=== PATIENT | female | born 1970 | race African-American/Black ===

== ENCOUNTER 2018-11-08 17:34 | Observation (INO) ==
[2018-11-08 18:50] LABS: Baso % (Auto) 0.5 % (0.0-2.0); Eos # (Auto) 0.1 th/mm3 (0.0-0.4); Eos % (Auto) 2.1 % (0.0-4.0); Hematocrit 37.6 % (35.0-46.0); Hemoglobin 12.7 gm/dL (11.6-15.3); Lymph # (Auto) 2.1 th/mm3 (1.0-4.8); Lymph % (Auto) 30.8 % (9.0-44.0); Mean Corpuscular HGB Conc 33.7 % (32.0-36.0); Mean Corpuscular Hemoglobin 25.7 pg (27.0-34.0); Mean Corpuscular Volume 76.3 fL (80.0-100.0); Mean Platelet Volume 8.1 fL (7.0-11.0); Mono # (Auto) 0.6 th/mm3 (0.0-0.9); Mono % (Auto) 8.3 % (0.0-8.0); Neut # (Auto) 3.9 th/mm3 (1.8-7.7); Neut % (Auto) 58.3 % (16.0-70.0); Platelet Count 360 th/mm3 (150-450); Red Blood Count 4.92 mil/mm3 (4.00-5.30); Red Cell Distribution Width 15.1 % (11.6-17.2); White Blood Count 6.7 th/mm3 (4.0-11.0)
[2018-11-08] MEDS ORDERED: Morphine Inj 4 MG/ML Vial IV.PUSH ONE (18:51)
[2018-11-08 18:54] LABS: Bacteria,Urine Rare /hpf; Bilirubin,Urine Negative (Negative); Clarity,Urine Clear (Clear); Color,Urine Straw (Yellw/Straw); Glucose,Urine (UA) 50 mg/dL (Negative); Leukocyte Esterase,Urine Negative (Negative); Nitrite,Urine Negative (Negative); Specific Gravity,Urine 1.009 (1.002-1.035); Squamous Epithelial Cell,Urine 1 /hpf (0-5)
--- NOTE | 2018-11-08 19:02 | XR ---
EXAM DATE: 11/08/2018 6:59 PM EST AGE/SEX: 48 years / Female INDICATIONS: Chest pain CLINICAL DATA: This is the patient's initial encounter. Patient reports that signs and symptoms have been present for 1 day and indicates a pain score of 6/10. MEDICAL/SURGICAL HISTORY: None. None. COMPARISON: No prior exams available for comparison. FINDINGS: Single AP view the chest. The lungs are clear. Cardiomediastinal silhouette within normal limits. No evidence of pleural effusion or pneumothorax. CONCLUSION: No acute cardiopulmonary disease identified. Electronically signed by: Sudeep Marsh MD Board Certified Radiologist 11/08/2018 7:00 PM EST
--- NOTE | 2018-11-08 19:03 | ED ---
HPI General Chief Complaint: Abdominal Pain Stated Complaint: Left Side/back pain Time Seen by Provider: 11/08/18 17:56 Source: patient and family Mode of arrival: ambulatory Limitations: no limitations History of Present Illness HPI narrative: 48-year-old female who presents to the ED for evaluation of left flank pain that radiates to the chest. Per patient she has had this for about 1 -2 hours. Per patient she got concerned because the pain did not seem to really get reproducible with touch or with movement. Breathing does not make it worse. Per patient is constant and does not go away. Per patient she was concerning could be her heart or kidney. She denies any rashes. No fevers chills or sweats. No cough or runny nose. No history of heart disease. History of diabetes and high blood pressure. Takes medications for this. Denies taking anything for the pain. Per patient the pain is 6 out of 10. Does radiate to the chest and the upper abdomen. No surgeries to her chest or belly ever per patient. No urinary or bowel movement issues. No trauma. No heavy lifting. Related Data Home Medications Medication Instructions Recorded Confirmed cholecalciferol (vitamin D3) 5,000 unit PO WEEKLY 11/08/18 11/08/18 [Vitamin D3] hydrochlorothiazide 25 mg PO DAILY 11/08/18 11/08/18 metoprolol tartrate 50 mg PO BID 11/08/18 11/08/18 nifedipine 60 mg PO DAILY 11/08/18 11/08/18 omeprazole 20 mg PO DAILY 11/08/18 11/08/18 potassium chloride [K-Tab] 8 meq PO DAILY 11/08/18 11/08/18 sertraline 50 mg PO DAILY 11/08/18 11/08/18 simvastatin 40 mg PO QPM 11/08/18 11/08/18 Allergies Allergy/AdvReac Type Severity Reaction Status Date / Time grass pollen Allergy Mild Unverified 06/17/17 13:43 latex Allergy Unknown HIVES Unverified 06/17/17 13:43 Review of Systems ROS: all other systems reviewed are negative [facility] Medical History Medical History Diabetes (Acute) High cholesterol (Acute) Hypertension (Acute) Social History Social History Second Hand Smoke Exposure: No Smoking Status: Never smoker How Often Do You Have a Drink Containing Alcohol: Never Recent Travel in [facility] within the Last 8 Weeks: No Recent Out of Country Travel within the Last 8 Weeks: No Immunization History Tetanus Immunization: <5 Years Exam Narrative Exam Narrative: GENERAL: Well-appearing SKIN: Focused skin assessment warm/dry. HEAD: Atraumatic. Normocephalic. EYES: Pupils equal and round. No scleral icterus. No injection or drainage. ENT: No nasal bleeding or discharge. Mucous membranes pink and moist. Tongue is midline. No Uvula deviation. NECK: Trachea midline. No JVD. CARDIOVASCULAR: Regular rate and rhythm. No murmur appreciated. RESPIRATORY: No accessory muscle use. Clear to auscultation. Breath sounds equal bilaterally. GASTROINTESTINAL: Abdomen soft, non-tender, nondistended. Hepatic and splenic margins not palpable. MUSCULOSKELETAL: No obvious deformities. No clubbing. No cyanosis. No edema. Full range of motion of the upper and lower extremities bilaterally. 2+ pulses bilaterally. No producible pain. NEUROLOGICAL: Awake and alert. No obvious cranial nerve deficits. Motor grossly within normal limits. Normal speech. PSYCHIATRIC: Appropriate mood and affect; insight and judgment normal. Course Initial Documented Vital Signs Temperature 98.6 F 11/08/18 17:52 Pulse Rate 74 11/08/18 17:52 Respiratory Rate 19 11/08/18 17:52 Blood Pressure 135/74 11/08/18 17:52 Pulse Oximetry 99 11/08/18 17:52 Last Documented Vital Signs Temperature 98.6 F 11/08/18 17:52 Pulse Rate 65 11/08/18 18:48 Respiratory Rate 18 11/08/18 18:48 Blood Pressure 144/75 H 11/08/18 18:48 Pulse Oximetry 99 11/08/18 18:48 Medical Decision Making ESTELA Attestation ESTELA supervised visit: Yes Attestation: I, Dr. Kunz, have reviewed the advance practice practitioner's documentation and am in agreement, met with the patient face to face, made the diagnosis, and the medical decision making was done by me. The patient was initially evaluated by Farida Irvin. Please see their complete history and physical. *My assessment and Findings: The patient presents with a history of left upper back pain that she reports suddenly began about an hour ago. She denies having any pain in the front of her chest. She denies having any shortness of breath. She reports that since being in the emergency department she has also developed a burning sensation in the midepigastric area and left upper quadrant that also radiated into her throat. Patient denies any prior history of cardiac disease, however she does have a history of hypertension, hyperlipidemia , and diabetes mellitus. She reports that she last had a stress test done years ago. During the course of the patient's emergency department visit, the patient's history, examination, and differential diagnosis were reviewed with the patient. The patient was placed on a solar manager with oximetry and frequent blood pressure monitoring. The patient had IV access obtained and blood work sent for analysis. The patient was initially provided morphine for pain, famotidine 20 mg IV, Zofran 4 mg IV. The patient continued to have pain and an EKG was assessed. The patient's EKG showed T wave abnormalities. The patient was given aspirin 324 mg p.o. x1, nitroglycerin sublingual x1. The patient's diagnostic studies were reviewed and remarkable for a white count of 6.7, hemoglobin 12.7, platelets 360 with 8.3 monocytes. Chemistry is remarkable for potassium 3.4, glucose 221, troponin I is less than 0.02, lipase within normal limits, urinalysis is unremarkable. CHEST X-RAY: Showed no acute cardiopulmonary disease, CT scan of the abdomen and pelvis showed no acute abnormality. The patient was agreeable with the plan to proceed with admission to the chest pain center for atypical upper chest pain, burning into the throat and upper abdomen. The patient's results were discussed with the patient, including the plan of care. I explained that further testing and/ or monitoring is indicated based on the patient's history, examination, and/ or laboratory findings. Therefore, I recommended admission for additional evaluation. The patient expressed understanding and was agreeable with this plan. The patient was admitted to the hospital in stable condition and sent to a bed under the care of the [facility]. MDM Narrative Medical decision making narrative: 48-year-old female who presents to the ED for evaluation of left flank pain. Patient was properly examined and was found to have signs and symptoms of unclear etiology. Labs and imaging were ordered. Patient was given IV pain medications. Labs and imaging showed no sign of acute disease. Patient does have a inguinal hernia fat-containing but there is no pain in this area. Is unclear as to what is causing the pain. I suspect that he could be potentially shingles but patient has no rash at this time. Case was discussed extensively with my attending Dr. Kunz who was made aware of all findings. Patient apparently had a reaction to the morphine where she started having a burning sensation to her abdomen. Patient was given Pepcid for this. It is unclear as to the patient's symptoms. I had my attending Dr. Kunz evaluate the patient who recommends admission for further evaluation and treatment as he could be a typical chest pain. She does have risk factors. Patient agree with admission to the chest pain center for chest pain center rule out. Patient was admitted by my attending. Medical Screen Exam Complete: Yes Emergency Medical Condition: Yes Differential Diagnosis Differential Diagnosis: Back pain versus kidney stone versus kidney pain versus musculoskeletal pain versus shingles versus ACS versus atypical chest pain Medical Records Medical records reviewed: Yes I reviewed the patient's medical records. Lab Data Lab results reviewed: Yes I reviewed the patient's lab results. Result diagrams: 11/08/18 18:15 11/08/18 18:15 Lab Results 11/08/18 11/08/18 11/08/18 Range/Units 18:10 18:15 18:15 WBC 6.7 (4.0-11.0) th/mm3 RBC 4.92 (4.00-5.30) mil/mm3 Hgb 12.7 (11.6-15.3) gm/dL Hct 37.6 (35.0-46.0) % MCV 76.3 L (80.0-100.0) fL MCH 25.7 L (27.0-34.0) pg MCHC 33.7 (32.0-36.0) % RDW 15.1 (11.6-17.2) % Plt Count 360 (150-450) th/mm3 MPV 8.1 (7.0-11.0) fL Neut % (Auto) 58.3 (16.0-70.0) % Lymph % (Auto) 30.8 (9.0-44.0) % [place] % (Auto) 8.3 H (0.0-8.0) % Eos % (Auto) 2.1 (0.0-4.0) % Baso % (Auto) 0.5 (0.0-2.0) % Neut # (Auto) 3.9 (1.8-7.7) th/mm3 Lymph # (Auto) 2.1 (1.0-4.8) th/mm3 [place] # (Auto) 0.6 (0.0-0.9) th/mm3 Eos # (Auto) 0.1 (0.0-0.4) th/mm3 Baso # (Auto) 0.0 (0.0-0.2) th/mm3 WBC Differential . Differential Comment Auto diff final Sodium 137 (136-145) meq/L Potassium 3.4 L (3.5-5.1) meq/L Chloride 103 (98-107) meq/L Carbon Dioxide 27.8 (21.0-32.0) meq/L Anion Gap 6 (5-15) meq/L BUN 10 (7-18) mg/dL Creatinine 0.75 (0.50-1.00) mg/dL Estimated GFR Greater than 89 (>89) mL/min Random Glucose 221 H (74-106) mg/dL Calcium 8.9 (8.5-10.1) mg/dL Magnesium 2.2 (1.5-2.5) mg/dL Total Bilirubin 0.6 (0.2-1.0) mg/dL AST 16 (15-37) U/L ALT 17 (10-53) U/L Alkaline Phosphatase 54 (45-117) U/L Troponin I Less than 0.02 L (0.02-0.05) ng/mL Total Protein 8.7 H (6.4-8.2) g/dL Albumin 3.5 (3.4-5.0) g/dL Lipase 79 (73-393) U/L Urine Color Straw (Yellw/Straw) Urine Clarity Clear (Clear) Urine pH 7.0 (5.0-8.5) Ur Specific [place] 1.009 (1.002-1.035) Urine Protein Negative (Neg-Trace) mg/dL Urine Glucose (UA) 50 (Negative) mg/dL Urine Ketones Negative (Negative) mg/dL Urine Occult Blood Negative (Negative) Urine Nitrate Negative (Negative) Urine Bilirubin Negative (Negative) Urine Urobilinogen Less than 2 (Less than 2) mg/dL Ur Leukocyte Esterase Negative (Negative) Urine WBC 1 (0-5) /hpf Ur Squamous Epith Cells 1 (0-5) /hpf Urine Bacteria Rare H (None) /hpf Micro UA Comment Culture not ind Ur Microscopic Review Not Reportable Urine Culture Comments Culture not ind Imaging Data Attestation: I personally reviewed and interpreted this imaging study as follows : Radiologist's impression: Abdomen/Pelvis CT 11/08/18 18:14 CONCLUSION: 1. No acute findings in the abdomen and pelvis. 2. Status post cholecystectomy. 3. Fat-containing periumbilical: Left-sided inguinal hernias. No associated inflammatory change or bowel involvement. 4. Prominent degenerative findings of the lumbar spine and right greater than left old sacroiliitis/sacroiliac joint arthrosis Chest X-Ray 11/08/18 18:14 CONCLUSION: No acute cardiopulmonary disease identified. ECG Data Attestation: I personally reviewed and interpreted this ECG as follows: Interpretation: EKG shows sinus rhythm with no sign of acute ischemia and arrhythmia read by me and attending. Some T wave inversions noted but no sign of ST elevations. Discharge Plan Discharge Disposition Patient Disposition: ED Admit(ED Internal Use Only) Discharge Order Discharge Orders: ED Use Only Admit Order (Routine); Ordered 11/08/18 Ordered By: Brianda Kunz Discharge Details Diagnosis: Chest pain, rule out acute myocardial infarction Physicians Team ED Provider: Brianda Kunz ED Midlevel Provider: Albaro Escalera Primary Care Provider: Jhon White Attending Provider: Corey Lemons Discharge Interventions Interventions: Vital Signs Last Done: 11/08/18 18:48 Status ED Status: Admitted Observation Patient
[2018-11-08 19:05] LABS: Albumin 3.5 g/dL (3.4-5.0); Anion Gap 6 meq/L (5-15); Aspartate Aminotransferase 16 U/L (15-37); Blood Urea Nitrogen 10 mg/dL (7-18); Calcium 8.9 mg/dL (8.5-10.1); Carbon Dioxide 27.8 meq/L (21.0-32.0); Chloride 103 meq/L (98-107); Glomerular Filtration Rate Greater Than 89 mL/min (>89); Glucose,Random 221 mg/dL (74-106); Lipase 79 U/L (73-393); Magnesium 2.2 mg/dL (1.5-2.5); Potassium 3.4 meq/L (3.5-5.1); Sodium 137 meq/L (136-145)
[2018-11-08 19:06] LABS: Alanine Aminotransferase 17 U/L (10-53)
[2018-11-08 19:10] LABS: Alkaline Phosphatase 54 U/L (45-117); Total Protein 8.7 g/dL (6.4-8.2)
--- NOTE | 2018-11-08 19:22 | CT ---
EXAM DATE: 11/08/2018 7:13 PM EST AGE/SEX: 48 years / Female INDICATIONS: Abdominal pain. CLINICAL DATA: This is the patient's initial encounter. Patient reports that signs and symptoms have been present for 1 day and indicates a pain score of 6/10. MEDICAL/SURGICAL HISTORY: Diabetes. Hypertension. Hypercholesterolemia. None. RADIATION DOSE: 30.78 CTDI (mGy) [place] [facility] [place] 01/04/2013. . TECHNIQUE: Multiple contiguous axial images were obtained through the abdomen. Images were obtained using multiple row detector helical technique. Using automated exposure control and adjustment of the mA and/or kV according to patient size, radiation dose was kept as low as reasonably achievable to o btain optimal diagnostic quality images. DICOM format image data is available electronically for rev iew and comparison. FINDINGS: Lower Lungs: The visualized lower lungs are clear. Liver: Liver is within normal limits. Cholecystectomy clips noted. Spleen: Homogeneous density without enlargement. Pancreas: Unremarkable without mass or calcification. Kidneys: Normal in size and shape. No evidence of mass or hydronephrosis. Adrenal Glands: Unremarkable. Aorta: The aorta and proximal iliac vessels are grossly unremarkable without aneurysmal dilation. Bowel/Mesentery: No evidence of bowel dilatation. No free air or free fluid. Appendix within normal limits. Abdominal Wall: 2 cm fat-containing periumbilical hernia. Retroperitoneum: No evidence of adenopathy in the retrocrural, para-aortic, or deep pelvic regions. Bladder: Contours are smooth. Reproductive Organs: Unremarkable. Inguinal: 2.8 cm left-sided fat-containing inguinal hernia. No enlarged lymph nodes. Bony Structures: Degenerative findings of the thoracic spine and lumbar spine. Prominent lower lumba r spine facet arthrosis. Old right greater than left sacroiliac joint arthrosis/sacroiliitis. CONCLUSION: 1. No acute findings in the abdomen and pelvis. 2. Status post cholecystectomy. 3. Fat-containing periumbilical: Left-sided inguinal hernias. No associated inflammatory change or b owel involvement. 4. 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
[2018-11-08] MEDS ORDERED: Famotidine PF Inj 20 MG/2 ML Vial IV.PUSH ONE (21:40)
[2018-11-08] MEDS ORDERED: Acetaminophen 500 MG Tablet PO PRN (22:09)
[2018-11-08 23:13] LABS: Creatine Kinase 65 U/L (26-192)
[2018-11-09 02:00] LABS: Creatine Kinase 85 U/L (26-192)
--- NOTE | 2018-11-09 07:42 | P.HPCA ---
History of Present Illness Primary Care Physician: Jhon White MD Chief Complaint: Back pain History of Present Illness: 48-year-old female with history of hypertension, hyperlipidemia, diabetes, and GERD presents emergency room for further evaluation left posterior scapula pain. Onset yesterday evening. Characterized as sharp. Radiation to left anterior chest. Associated symptoms included diaphoresis. Denies nausea, vomiting, or shortness of breath. Duration hours. Denies similar pain in the past. No precipitating or relieving factors. Inspiration did not make pain better or worse. No particular position makes pain better or worse. No recent illness, cough, or known injury. Lifelong non-smoker. Past cardiac testing 07/02/2010 Lexiscan-the rest and stress images are unremarkable. There were no fixed or reversible perfusion abnormalities. Wall motion preserved. The calculated ejection fraction 62%. Social history Known type 2 diabetes, hypertension, and hyperlipidemia. No known coronary artery disease. Lifelong non-smoker. Denies alcohol or recreational drug use. Endorses sedentary lifestyle. Family history Noncontributory for early onset cardiovascular disease. - Diagnosis (1) Atypical chest pain (2) Hypertension (3) Type II diabetes mellitus (4) Hyperlipidemia Review of Systems All other systems reviewed negative except as stated in HPI PMFSH - History History Provided By: Patient - Medical History Medical History: Medical History (Last Updated 11/09/18 @ 09:07 by STEFAN Portillo) Depression Diabetes GERD (gastroesophageal reflux disease) High cholesterol Hypertension Vitamin D deficiency - Surgical History Surgical History: Surgical History (Last Updated 11/09/18 @ 09:16 by STEFAN Portillo) H/O tubal ligation History of endometrial ablation S/P cholecystectomy - Tobacco History Second Hand Smoke Exposure: No Smoking Status: Never smoker - Alcohol History How Often Do You Have a Drink Containing Alcohol: Never - Substance Use History Substance History: No History of Abuse - Travel History Recent Travel in the [place] Within the Last 8 Weeks: No Recent Travel Out of the Country Within the Last 8 Weeks: No - Immunization History Tetanus Immunization: <5 Years Medications and Allergies Active Medications: Active Medications Acetaminophen (Tylenol) 500 mg PO Q4H PRN PRN Reason: HEADACHE Famotidine (Pepcid) 20 mg PO BID MAYE Sodium Chloride (Ns Flush) 2 ml IV.FLUSH BID MAYE Sodium Chloride (Ns Flush) 2 ml IV.FLUSH PRN PRN PRN Reason: FLUSH AFTER USING IV ACCESS Allergies Allergy/AdvReac Type Severity Reaction Status Date / Time grass pollen Allergy Mild Unverified 06/17/17 13:43 latex Allergy Unknown HIVES Unverified 06/17/17 13:43 Home Medications Medication Instructions Recorded Confirmed Type cholecalciferol (vitamin D3) 5,000 unit PO WEEKLY 11/08/18 11/08/18 History [Vitamin D3] hydrochlorothiazide 25 mg PO DAILY 11/08/18 11/08/18 History metoprolol tartrate 50 mg PO BID 11/08/18 11/08/18 History nifedipine 60 mg PO DAILY 11/08/18 11/08/18 History omeprazole 20 mg PO DAILY 11/08/18 11/08/18 History potassium chloride [K-Tab] 8 meq PO DAILY 11/08/18 11/08/18 History sertraline 50 mg PO DAILY 11/08/18 11/08/18 History simvastatin 40 mg PO QPM 11/08/18 11/08/18 History Exam Vital signs: Vital Signs 11/08/18 17:52 11/08/18 18:06 11/08/18 18:48 Temperature 98.6 F Pulse Rate 74 65 Respiratory Rate 19 18 18 Blood Pressure 135/74 144/75 H Pulse Oximetry 99 99 11/08/18 23:06 11/09/18 00:00 11/09/18 04:00 Temperature 98.7 F 98.1 F Pulse Rate 60 63 64 Respiratory Rate 16 16 16 Blood Pressure 147/79 H 142/78 H 128/72 Pulse Oximetry 98 93 L 98 Intake & Output 11/08/18 11/09/18 11/09/18 18:59 06:59 18:59 Weight 113.852 kg 113.85 kg Other: # Voids 1 Weight On Admission 113.85 kg Narrative: GENERAL: Alert WN, WD, NAD, pleasant, obese, -[place] female HEAD: NC, AT EYES: Sclera clear, conjunctiva without injection, pupils equal and round ENT: Mucous membranes pink and moist NECK: Supple, no masses, trachea midline CV: RRR, without murmur, rub, gallop, no JVD, S1-S2. RESP: Clear lungs throughout bilateral, no crackles, wheeze, rhonchi, symmetrical chest rise, nonlabored, able to speak in full sentences ABD: Soft, NT, ND, no masses, positive bowel tones EXT: Pulses +2x4, trace dependent edema MS: Normal tone x4 extremities, nontender, no obvious deformities, full range of motion NEURO: Motor strength 5/5 PSYCH: A+O x3, pleasant affect, appropriate speech, mood, insight and judgment SKIN: Normal turgor, normal texture, no lesions, no rashes, even hair distribution Results 11/08/18 18:15 11/08/18 18:15 Cardiac Enzymes 11/08/18 11/08/18 11/09/18 Range/Units 18:15 22:30 01:28 AST 16 (15-37) U/L Troponin I Less than 0.02 L Less than 0.02 L Less than 0.02 L (0.02-0.05) ng/mL CBC 11/08/18 Range/Units 18:15 WBC 6.7 (4.0-11.0) th/mm3 RBC 4.92 (4.00-5.30) mil/mm3 Hgb 12.7 (11.6-15.3) gm/dL Hct 37.6 (35.0-46.0) % Plt Count 360 (150-450) th/mm3 Neut # (Auto) 3.9 (1.8-7.7) th/mm3 Lymph # (Auto) 2.1 (1.0-4.8) th/mm3 [place] # (Auto) 0.6 (0.0-0.9) th/mm3 Eos # (Auto) 0.1 (0.0-0.4) th/mm3 Baso # (Auto) 0.0 (0.0-0.2) th/mm3 Comprehensive Metabolic Panel 11/08/18 Range/Units 18:15 Sodium 137 (136-145) meq/L Potassium 3.4 L (3.5-5.1) meq/L Chloride 103 (98-107) meq/L Carbon Dioxide 27.8 (21.0-32.0) meq/L BUN 10 (7-18) mg/dL Creatinine 0.75 (0.50-1.00) mg/dL Calcium 8.9 (8.5-10.1) mg/dL AST 16 (15-37) U/L ALT 17 (10-53) U/L Alkaline Phosphatase 54 (45-117) U/L Total Protein 8.7 H (6.4-8.2) g/dL Albumin 3.5 (3.4-5.0) g/dL Intake and Output 11/08/18 11/09/18 11/09/18 22:59 06:59 14:59 Other: # Voids 1 Weight 113.852 kg 113.85 kg Weight On Admission 113.85 kg - Imaging and Cardiology Imaging: Impressions Abdomen/Pelvis CT 11/08/18 18:14 CONCLUSION: 1. No acute findings in the abdomen and pelvis. 2. Status post cholecystectomy. 3. Fat-containing periumbilical: Left-sided inguinal hernias. No associated inflammatory change or bowel involvement. 4. Prominent degenerative findings of the lumbar spine and right greater than left old sacroiliitis/sacroiliac joint arthrosis Chest X-Ray 11/08/18 18:14 CONCLUSION: No acute cardiopulmonary disease identified. EKG interpretations - EKG EKG results cardiology: sinus rhythm, normal axis Caprini VTE Risk Assessment Caprini VTE Risk Assessment: No/Low Risk (score <= 1) Caprini Risk Assessment Model: Point Value = 1 Point Value = 2 Point Value = 3 Point Value = 5 Age 41-60 Minor surgery BMI > 25 kg/m2 Swollen legs Varicose veins or History of unexplained or recurrent spontaneous Oral contraceptives or hormone replacement Sepsis (< 1 month) Serious lung disease, including pneumonia (< 1 month) Abnormal pulmonary function Acute myocardial infarction Congestive heart failure (< 1 month) History of inflammatory bowel disease Medical patient at bed rest Age 61-74 Arthroscopic surgery Major open surgery (> 45 min) Laparoscopic surgery (> 45 min) Malignancy Confined to bed (> 72 hours) Immobilizing plaster cast Central venous access Age >= 75 History of VTE Family history of VTE Factor V Leiden Prothrombin [id number] Lupus anticoagulant Anticardiolipin antibodies Elevated serum homocysteine Heparin-induced thrombocytopenia Other congenital or acquired thrombophilia Stroke (< 1 month) Elective arthroplasty Hip, pelvis, or leg fracture Acute spinal cord injury (< 1 month) Prophylaxis Regimen: Total Risk Factor Score Risk Level Prophylaxis Regimen 0-1 Low Early ambulation 2 Moderate Order ONE of the following: *Sequential Compression Device (SCD) *Heparin 5000 units SQ BID 3-4 Higher Order ONE of the following medications: *Heparin 5000 units SQ TID *Enoxaparin/Lovenox 40 mg SQ daily (WT < 150 kg, CrCl > 30 mL/min) *Enoxaparin/Lovenox 30 mg SQ daily (WT < 150 kg, CrCl > 10-29 mL/min) *Enoxaparin/Lovenox 30 mg SQ BID (WT < 150 kg, CrCl > 30 mL/min) AND/OR *Sequential Compression Device (SCD) 5 or more Highest Order ONE of the following medications: *Heparin 5000 units SQ TID (Preferred with Epidurals) *Enoxaparin/Lovenox 40 mg SQ daily (WT < 150 kg, CrCl > 30 mL/min) *Enoxaparin/Lovenox 30 mg SQ daily (WT < 150 kg, CrCl > 10-29 mL/min) *Enoxaparin/Lovenox 30 mg SQ BID (WT < 150 kg, CrCl > 30 mL/min) AND *Sequential Compression Device (SCD) Assessment and Plan - Assessment (1) Atypical chest pain Code(s): R07.89 - Other chest pain Status: Acute Plan: Admitted to chest pain center. Monitor on telemetry overnight. ACS ruled out 3 sets of EKGs and cardiac enzymes. Seen and evaluated by Dr. Jae Orr. Proceed with Lexiscan this a.m. If unremarkable, plans to discharge home with follow-up with her primary care provider. She is agreeable to plan of care and verbalizes understanding. Lexiscan (2) Hypertension Code(s): I10 - Essential (primary) hypertension Status: Chronic Plan: Continue hydrochlorothiazide, metoprolol, and nifedipine. (3) Type II diabetes mellitus Code(s): E11.9 - Type 2 diabetes mellitus without complications Status: Chronic Plan: Hypoglycemic protocol. Continue Metformin. (4) Hyperlipidemia Code(s): E78.5 - Hyperlipidemia, unspecified Status: Chronic Plan: Continue simvastatin. H&P: Quality - VTE Deep Vein Thrombosis/Pulmonary Embolism Present on Admission: No (2) Hypertension Qualifiers: Hypertension type: unspecified Qualified Code(s): I10 - Essential (primary) hypertension (3) Type II diabetes mellitus Qualifiers: Diabetes mellitus director long term care insulin use: without director long term care use Diabetes mellitus complication status: with unspecified complications Qualified Code(s) : E11.8 - Type 2 diabetes mellitus with unspecified complications (4) Hyperlipidemia Qualifiers: Hyperlipidemia type: unspecified Qualified Code(s): E78.5 - Hyperlipidemia, unspecified
[2018-11-09] MEDS ORDERED: Famotidine 20 MG Tablet PO SCH (09:00)
[2018-11-09] MEDS ORDERED: Regadenoson Inj 0.4 MG/5 ML Syringe IV.PUSH ONE (09:12)
--- NOTE | 2018-11-09 10:19 | NM ---
EXAM DATE: 11/09/2018 10:14 AM EST AGE/SEX: 48 years / Female INDICATIONS:Angina. . Left sided chest pain. CLINICAL DATA: This is the patient's initial encounter. Patient reports that signs and symptoms have been present for 1 day and indicates a pain score of 5/10. MEDICAL/SURGICAL HISTORY: Diabetes mellitus type II. Hypertension. None. COMPARISON: No prior exams available for comparison. DOSE: 11 mCi Tc 99m Myoview at rest 35 mCi [id number] at stress 0.4 mg Lexiscan STRESS SYMPTOMS: Dyspnea and weird feeling. EJECTION FRACTION: >70 % TECHNIQUE: The patient underwent pharmacologic stress with infusion of prescribed dose. Continuous ECG tracing was monitored during stress. Gated SPECT imaging was performed after stress and conventi onal SPECT imaging was performed at rest. The examination was performed on a SPECT/CT scanner, both attenuation and non-corrected datasets were reviewed. FINDINGS: Distribution: The maximum perfused segment at stress is in the inferior wall. Perfusion Study: The pattern of perfusion at stress shows one or 2 images on the short axis views o f approximately 10-20% redistribution in the mid to lower inferior wall which is not corroborated on the vertical long axis views. There is some apical thinning. Otherwise, no scintigraphic findings of ischemia.. Gated Study: There are intact wall motion and wall thickening without hypokinetic or dyskinetic segm ents. The ejection fraction is calculated at >70%. RISK CATEGORY: Low (<1% Annual Mortality Rate) CONCLUSION: 1. No scintigraphic findings of infarct or ischemia. Mild apical thinning. 2. Excellent wall motion throughout been estimated ejection fraction of greater than 70%. Electronically signed by: Adam Morse MD Board Certified Radiologist 11/09/2018 10:18 AM EST
[2018-11-09 10:25] VITALS: BP 139/66; PULSE 66; RESP 18; TEMP 98.3; O2SAT 99
[2018-11-09] MEDS ORDERED: Pantoprazole Sodium 20 MG DR Tablet PO SCH (11:00)
[2018-11-09] MEDS ORDERED: hydroCHLOROthiazide 25 MG Tablet PO SCH (11:00)
[2018-11-09] MEDS ORDERED: Sertraline 50 MG Tablet PO SCH (11:30)
--- NOTE | 2018-11-09 15:57 | ECG ---
Date Performed: 11/09/2018 Time Performed: 01:23:45 PTAGE: 48 years EKG: SINUS BRADYCARDIA MODERATE T-WAVE ABNORMALITY, CONSIDER ANTERIOR ISCHEMIA ABNORMAL ECG NO PREVIOUS TRACING DOCTOR: Jae Orr Interpretating Date/Time 11/09/2018 15:55:17
--- NOTE | 2018-11-09 15:57 | ECG ---
Date Performed: 11/08/2018 Time Performed: 22:38:16 PTAGE: 48 years EKG: SINUS BRADYCARDIA MODERATE T-WAVE ABNORMALITY, CONSIDER ANTERIOR ISCHEMIA ABNORMAL ECG PREVIOUS TRACING : 11/08/2018 18.32 Since previous tracing, no significant change noted DOCTOR: Jae Orr Interpretating Date/Time 11/09/2018 15:55:46
--- NOTE | 2018-11-09 15:58 | ECG ---
Date Performed: 11/08/2018 Time Performed: 18:32:36 PTAGE: 48 years EKG: Sinus rhythm MODERATE T-WAVE ABNORMALITY, CONSIDER ANTERIOR ISCHEMIA ABNORMAL ECG PREVIOUS TRACING : 06/19/2014 00.55 Since previous tracing, no significant change noted DOCTOR: Jae Orr Interpretating Date/Time 11/09/2018 15:56:32
--- NOTE | 2018-11-09 16:02 | TR ---
Date Performed: 11/09/2018 Time Performed: 09:12:55 DOCTOR: Jae Orr DRUG LIST: CLINICAL HISTORY: REASON FOR TEST: CHEST PAIN REASON FOR ENDING: OBSERVATION: CONCLUSION: COMMENTS: Lexiscan stress test was performed under standard four minute protocol. Radionuclide was injected one minute prior to ending the test. No electrocardiographic abormalities were present t o suggest ischemia. Nuclear imaging and interpretation are pending.
[2018-11-09] MEDS ORDERED: Metoprolol Tartrate 50 MG Tablet PO SCH (21:00)
== END 2018-11-09 11:32 | disposition home or self-care (01) ==
LOC: NEPE 17:34 → NEDA 17:34 → NEPFCDU 23:40
DX: R07.89 Other chest pain; Z91.040 Latex allergy status; K21.9 Gastro-esophageal reflux disease without esophagitis; Z90.49 Acquired absence of other specified parts of digestive tract; E78.5 Hyperlipidemia, unspecified; Z98.51 Tubal ligation status; E11.9 Type 2 diabetes mellitus without complications; R94.31 Abnormal electrocardiogram [ECG] [EKG]; E78.00 Pure hypercholesterolemia, unspecified; I10 Essential (primary) hypertension
CPT/HCPCS: 71010; 71045; 74176; 78452; 80053; 81001; 82550; 83690; 83735; 84484; 85025; 90774; 90775; 90784; 93005; 93017; 96374; 96375; 99285; A9502; C8952; G0378; J2270; J2405; J2785; Q9969